=== PATIENT | female | born 1950 | race Caucasian/White ===

== ENCOUNTER 2019-12-22 12:16 | Emergency (ER) | payer OTHER, MEDICARE ==
[~2019-12-22] VITALS: Ht 172.7 cm; Wt 70.2 kg
[2019-12-22 13:28] LABS: BASOPHILS # (AUTO) 0.1 X10'3 (0-0.2); BASOPHILS % (AUTO) 1.8 % (0-1); EOSINOPHILS # (AUTO) 0.2 X10'3 (0-0.9); HEMATOCRIT 25.7 % (35.0-45.0); HEMOGLOBIN 7.6 g/dl (12.0-16.0); LYMPHOCYTES # (AUTO) 1.5 X10'3 (1.1-4.8); LYMPHOCYTES % (AUTO) 19.9 % (21-51); MEAN CORPUSCULAR HEMOGLOBIN 18.4 PG (27.0-31.0); MEAN CORPUSCULAR HGB CONC 29.5 g/dL (33.0-36.5); MEAN CORPUSCULAR VOLUME 62.3 FL (78-98); MEAN PLATELET VOLUME 7.1 FL (7.4-10.4); MONOCYTES # (AUTO) 0.7 X10'3 (0-0.9); MONOCYTES % (AUTO) 8.5 % (2-12); NEUTROPHILS # (AUTO) 5.3 X10'3 (1.8-7.7); NEUTROPHILS % (AUTO) 67.8 % (42-75); PLATELET COUNT 441 X10'3 (140-440); RED BLOOD COUNT 4.12 X10'6 (4.20-5.60); RED CELL DISTRIBUTION WIDTH 18.8 % (11.5-14.5); WHITE BLOOD COUNT 7.7 X10'3 (4.5-11.0)
[2019-12-22 13:31] LABS: ALANINE AMINOTRANSFERASE 26 U/L (12-78); ALBUMIN 3.8 G/DL (3.4-5.0); ALBUMIN/GLOBULIN RATIO 1.1 (1.1-1.5); ALKALINE PHOSPHATASE 96 IU/L (46-116); ANION GAP 1 (8-16); ASPARTATE AMINO TRANSFERASE 23 U/L (10-37); BILIRUBIN,TOTAL 0.2 MG/DL (0.1-1.0); BLOOD UREA NITROGEN 16 MG/DL (7-18); BUN/CREATININE RATIO 21.6 (6.6-38.0); CALCIUM 9.1 MG/DL (8.5-10.1); CHLORIDE 104 MMOL/L (99-107); CREATININE 0.74 MG/DL (0.40-0.90); GLUCOSE 89 MG/DL (70-104); POTASSIUM 3.8 MMOL/L (3.5-5.1); SODIUM 134 MMOL/L (135-145); TOTAL CARBON DIOXIDE 29.4 MMOL/L (24-32); TOTAL PROTEIN 7.4 G/DL (6.4-8.2); eGFR 77 ML/MIN
[2019-12-22 13:48] LABS: PLATELET ESTIMATE INCREASED; POLYCHROMASIA FEW
[2019-12-22 13:49] LABS: ANISOCYTOSIS 2+; ELLIPTOCYTES FEW; HYPOCHROMASIA 2+; MICROCYTOSIS 2+; STOMATOCYTES FEW; TEAR DROP CELLS 1+
[2019-12-22 15:43] VITALS: BP 153/74
== END 2019-12-22 16:01 | disposition home or self-care (01) ==
LOC: ER 12:17
DX: D64.9 Anemia, unspecified (principal); R07.89 Other chest pain; F17.210 Nicotine dependence, cigarettes, uncomplicated
CPT/HCPCS: 36415; 71045; 80053; 83880; 84484; 85008; 85025; 93005; 99285

== ENCOUNTER 2023-08-11 17:44 | Inpatient (IN) | payer MEDICARE, OTHER ==
[~2023-08-11] VITALS: Ht 172.7 cm; Wt 65.9 kg
[2023-08-11 18:14] LABS: ALANINE AMINOTRANSFERASE 19 U/L (12-78); ALBUMIN 3.7 G/DL (3.4-5.0); ALBUMIN/GLOBULIN RATIO 0.9 (1.1-1.5); ALKALINE PHOSPHATASE 90 IU/L (46-116); ANION GAP 5 (8-16); ASPARTATE AMINO TRANSFERASE 16 U/L (10-37); BILIRUBIN,TOTAL 0.2 MG/DL (0.1-1.0); BLOOD UREA NITROGEN 11 MG/DL (7-18); BUN/CREATININE RATIO 15.7 (10.0-20.0); CALCIUM 10.6 MG/DL (8.5-10.1); CHLORIDE 101 MMOL/L (99-107); GLUCOSE 107 MG/DL (70-104); POTASSIUM 4.3 MMOL/L (3.5-5.1); SODIUM 135 MMOL/L (135-145); TOTAL CARBON DIOXIDE 28.8 MMOL/L (24-32); TOTAL PROTEIN 7.7 G/DL (6.4-8.2); eCRCL 70 ML/MIN; eGFR 82 ML/MIN
[2023-08-11 18:15] LABS: APTT 22 SECONDS (22-32); PROTHROMBIN TIME 10.3 SECONDS (9.0-12.0)
[2023-08-11 18:21] LABS: PRO BRAIN NATRIURETIC PEPTIDE 123 PG/ML (0-450)
[2023-08-11 18:29] LABS: BASOPHILS # (AUTO) 0.1 X10'3 (0-0.2); BASOPHILS % (AUTO) 1.9 % (0-1); EOSINOPHILS # (AUTO) 0.1 X10'3 (0-0.9); HEMATOCRIT 27.4 % (35.0-45.0); HEMOGLOBIN 8.3 g/dl (12.0-16.0); LYMPHOCYTES # (AUTO) 2.4 X10'3 (1.1-4.8); LYMPHOCYTES % (AUTO) 31.5 % (21-51); MEAN CORPUSCULAR HGB CONC 30.2 g/dL (33.0-36.5); MONOCYTES # (AUTO) 0.6 X10'3 (0-0.9); MONOCYTES % (AUTO) 7.4 % (2-12); NEUTROPHILS # (AUTO) 4.5 X10'3 (1.8-7.7); NEUTROPHILS % (AUTO) 58.2 % (42-75); PLATELET COUNT 449 X10'3 (140-440); RED BLOOD COUNT 4.35 X10'6 (4.20-5.60); RED CELL DISTRIBUTION WIDTH 19.1 % (11.5-14.5); WHITE BLOOD COUNT 7.7 X10'3 (4.5-11.0)
[2023-08-11] MEDS ORDERED: iohexol 350MG/ML 100ml bottle IV ONE (19:08)
[2023-08-11] MEDS ORDERED: iohexol 350 MG/ML 50ML vial IV ONE (19:29)
[2023-08-11 19:38] LABS: ANISOCYTOSIS 2+; MICROCYTOSIS 2+; PLATELET ESTIMATE INCREASED; TOTAL CELLS COUNTED 100
[2023-08-11 19:43] LABS: ELLIPTOCYTES FEW; HYPOCHROMASIA 1+; POIKILOCYTOSIS FEW; SCHISTOCYTES FEW
[2023-08-11] MEDS ORDERED: mag hydrox/Alum hydrox/simeth 30ml oral suspension PO PRN (22:05)
[2023-08-11] MEDS ORDERED: magnesium 2GM in 50ml NS 50 ML IV PRN (22:05)
[2023-08-11] MEDS ORDERED: magnesium 4gm in 100ml NS 100 ML IV PRN (22:05)
[2023-08-11] MEDS ORDERED: magnesium Cl slow-release 64mg tablet PO PRN (22:05)
[2023-08-11] MEDS ORDERED: magnesium hydroxide 30ml (MOM) UD suspension PO PRN (22:05)
[2023-08-11] MEDS ORDERED: ondansetron/PF 4mg/2ml inj IV PRN (22:05)
[2023-08-11] MEDS ORDERED: potassium Cl 20 mEq SR tablet PO PRN ×2 (22:05)
[2023-08-11] MEDS ORDERED: potassium Cl 40MEQ/1/2NS 520ml 520 ML IV PRN (22:05)
[2023-08-11] MEDS ORDERED: acetaminophen 325mg tablet PO PRN (22:05)
[2023-08-11 22:39] LABS: HEMOGLOBIN A1C 5.7 % (4.5-6.2)
[2023-08-11] MEDS: normal saline 1000ml 1,000 ML IV SCH (23:48)
[2023-08-12 01:03] LABS: BILIRUBIN,URINE NEGATIVE (Neg); CLARITY,URINE CLEAR (Clear); COLOR,URINE STRAW (Yellow); GLUCOSE, URINE NEGATIVE (Neg); KETONES,URINE NEGATIVE (Neg); LEUKOCYTE ESTERASE ,URINE NEGATIVE (Neg); NITRITES, URINE NEGATIVE (Neg); OCCULT BLOOD,URINE SMALL (Neg); PH,URINE 5.5 (4.8-8.0); PROTEIN,URINE NEGATIVE (Neg); UROBILINOGEN,URINE 0.2 E.U/dL (0.2-1.0)
[2023-08-12 01:08] LABS: UA COLLECTION TYPE VOIDED
[2023-08-12 01:09] LABS: BACTERIA,URINE FEW /HPF (Neg); SQUAMOUS EPITHELIAL CELL,UR FEW /LPF (FEW); WBC,URINE 0-4 /HPF (0-4)
[2023-08-12] MEDS ORDERED: DEXT20TA6 PO (05:46)
[2023-08-12] MEDS ORDERED: ERGO500093 PO (05:46)
[2023-08-12] MEDS ORDERED: enoxaparin 40mg/0.4ml syringe SUBCUT SCH (08:00)
[2023-08-12] MEDS: K and/or MAG REPLACEMENT MC SCH (08:00)
[2023-08-12 09:08] VITALS: BP 135/73; PULSE 68; RESP 17; TEMP 97.5; O2SAT 96
[2023-08-12] MEDS: magnesium 2GM in 50ml NS 50 ML IV ONE (10:30)
[2023-08-12] MEDS: normal saline 500ml IV soln 500 ML IV ONE (10:31)
[2023-08-12 12:17] LABS: BASOPHILS # (AUTO) 0.1 X10'3 (0-0.2); BASOPHILS % (AUTO) 1.5 % (0-1); EOSINOPHILS # (AUTO) 0.1 X10'3 (0-0.9); EOSINOPHILS % (AUTO) 1.3 % (0-6); HEMATOCRIT 25.5 % (35.0-45.0); HEMOGLOBIN 7.6 g/dl (12.0-16.0); LYMPHOCYTES # (AUTO) 1.6 X10'3 (1.1-4.8); LYMPHOCYTES % (AUTO) 31.2 % (21-51); MEAN CORPUSCULAR HGB CONC 29.6 g/dL (33.0-36.5); MEAN PLATELET VOLUME 7.1 FL (7.4-10.4); MONOCYTES # (AUTO) 0.4 X10'3 (0-0.9); MONOCYTES % (AUTO) 8.3 % (2-12); NEUTROPHILS % (AUTO) 57.7 % (42-75); PLATELET COUNT 355 X10'3 (140-440); RED BLOOD COUNT 3.98 X10'6 (4.20-5.60); RED CELL DISTRIBUTION WIDTH 19.5 % (11.5-14.5); WHITE BLOOD COUNT 5.1 X10'3 (4.5-11.0)
[2023-08-12 12:30] LABS: ANION GAP 5 (8-16); BLOOD UREA NITROGEN 8 MG/DL (7-18); BUN/CREATININE RATIO 15.7 (10.0-20.0); CALCIUM 9.3 MG/DL (8.5-10.1); CHLORIDE 107 MMOL/L (99-107); CHOL/HDL RATIO 4.5 (0.00-4.99); CHOLESTEROL 187 MG/DL (0-200); CREATININE 0.51 MG/DL (0.40-0.90); GLUCOSE 95 MG/DL (70-104); HDL CHOLESTEROL 42 MG/DL (35-60); LDL CHOLESTEROL 118 MG/DL (50-100); POTASSIUM 4.1 MMOL/L (3.5-5.1); SODIUM 140 MMOL/L (135-145); TRIGLYCERIDES 116 MG/DL (20-135); eCRCL 96 ML/MIN; eGFR > 90 ML/MIN
[2023-08-12 13:14] LABS: FERRITIN 3 NG/ML (8-252)
[2023-08-12 13:51] VITALS: BP 142/73; PULSE 72; RESP 16; TEMP 97.8; O2SAT 98
[2023-08-12 14:10] LABS: % IRON SATURATION 2 % (11-46); IRON 9 UG/DL (49-151); TOTAL IRON BINDING CAPACITY 383 UG/DL (259-388)
[2023-08-12] MEDS: valproate sod inj 500 MG in dextrose 5%-water 50ml 50 ML IV ONE (14:57)
[2023-08-12 18:00] VITALS: BP 137/69; PULSE 96; RESP 18; TEMP 97.5; O2SAT 98
[2023-08-12] MEDS: ondansetron/PF 4mg/2ml inj IV ONE (19:32)
[2023-08-12] MEDS: aspirin 81mg, enteric-coated 1 TAB TABLET.DR PO ONE (19:32)
[2023-08-12] MEDS: diphenhydrAMINE 50 mg/ml inj IV ONE (19:32)
[2023-08-12] MEDS: FERROUS SULFATE 142 MG TABLET.ER (45mg elemental) PO SCH (19:32)
[2023-08-12 20:00] VITALS: RESP 16; O2SAT 95
[2023-08-12] MEDS: iron sucrose complex injection 300 MG in normal saline 250ml IV soln 250 ML IV SCH (21:52)
[2023-08-12 22:00] VITALS: BP 144/75; PULSE 75; RESP 20; TEMP 97.4; O2SAT 98
[2023-08-12] MEDS: Melatonin 3mg tablet PO SCH (22:40)
[2023-08-12] MEDS ORDERED: ibuprofen tablet 400 MG TABLET PO PRN (22:40)
[2023-08-13 02:00] VITALS: BP 145/58; PULSE 85; RESP 17; TEMP 97.6; O2SAT 97
[2023-08-13 06:00] VITALS: BP 129/64; PULSE 74; RESP 20; TEMP 97.5; O2SAT 96
[2023-08-13 07:08] LABS: BASOPHILS # (AUTO) 0.1 X10'3 (0-0.2); BASOPHILS % (AUTO) 1.6 % (0-1); EOSINOPHILS # (AUTO) 0.1 X10'3 (0-0.9); EOSINOPHILS % (AUTO) 2.1 % (0-6); HEMATOCRIT 24.3 % (35.0-45.0); HEMOGLOBIN 7.2 g/dl (12.0-16.0); LYMPHOCYTES # (AUTO) 0.9 X10'3 (1.1-4.8); LYMPHOCYTES % (AUTO) 12.3 % (21-51); MEAN CORPUSCULAR HEMOGLOBIN 18.9 PG (27.0-31.0); MEAN CORPUSCULAR HGB CONC 29.4 g/dL (33.0-36.5); MEAN CORPUSCULAR VOLUME 64.3 FL (78-98); MEAN PLATELET VOLUME 7.1 FL (7.4-10.4); MONOCYTES # (AUTO) 0.3 X10'3 (0-0.9); MONOCYTES % (AUTO) 4.6 % (2-12); NEUTROPHILS # (AUTO) 5.6 X10'3 (1.8-7.7); NEUTROPHILS % (AUTO) 79.4 % (42-75); PLATELET COUNT 355 X10'3 (140-440); RED BLOOD COUNT 3.78 X10'6 (4.20-5.60); RED CELL DISTRIBUTION WIDTH 19.1 % (11.5-14.5); WHITE BLOOD COUNT 7.1 X10'3 (4.5-11.0)
[2023-08-13 07:11] LABS: ALBUMIN 2.9 G/DL (3.4-5.0); ANION GAP 6 (8-16); BLOOD UREA NITROGEN 5 MG/DL (7-18); BUN/CREATININE RATIO 8.5 (10.0-20.0); CALCIUM 8.9 MG/DL (8.5-10.1); CHLORIDE 109 MMOL/L (99-107); CREATININE 0.59 MG/DL (0.40-0.90); GLUCOSE 92 MG/DL (70-104); POTASSIUM 3.9 MMOL/L (3.5-5.1); SODIUM 142 MMOL/L (135-145); TOTAL CARBON DIOXIDE 27.1 MMOL/L (24-32); eCRCL 83 ML/MIN; eGFR > 90 ML/MIN
[2023-08-13 08:58] LABS: PLATELET ESTIMATE NORMAL
[2023-08-13 08:59] VITALS: RESP 20; O2SAT 96
[2023-08-13 08:59] LABS: ANISOCYTOSIS 2+; HYPOCHROMASIA 2+; MICROCYTOSIS 2+; POLYCHROMASIA 1+
[2023-08-13] MEDS: atorvastatin 10mg tablet PO SCH (08:59)
[2023-08-13] MEDS: aspirin 81mg, enteric-coated 1 TAB TABLET.DR PO SCH (08:59)
[2023-08-13] MEDS: ascorbic acid 500mg tablet PO SCH (09:00)
[2023-08-13 09:02] LABS: ELLIPTOCYTES FEW; SCHISTOCYTES FEW
[2023-08-13 10:00] VITALS: BP 145/78; PULSE 87; RESP 18; TEMP 98.8; O2SAT 97
[2023-08-13] MEDS: sodium ferric gluc complex 125 MG/NS IV soln 110 ML BAG IV SCH (10:35)
[2023-08-13] MEDS ORDERED: AMLO5TAB16 PO (17:12)
[2023-08-13] MEDS ORDERED: ATOR10TA PO (17:12)
[2023-08-13] MEDS ORDERED: FERR-119 PO (17:12)
== END 2023-08-13 17:36 | disposition home or self-care (01) | DRG 125 ==
LOC: ER 17:45 → ED HOLD 22:12 → EDBEDREQ 08-12 01:07 → ORTHO 4S 08-12 09:17 → OBSVTOIN 08-12 13:59
PROVIDERS: ADMIT Internal Medicine Critical Care Medicine; ATTEND Family Medicine
DX: H35.62 Retinal hemorrhage, left eye (principal); E88.09 Other disorders of plasma-protein metabolism, not elsewhere classified; D50.9 Iron deficiency anemia, unspecified; E78.5 Hyperlipidemia, unspecified
CPT/HCPCS: 36415; 70450; 70480; 70496; 70498; 70551; 71045; 80048; 80053; 80061; 81001; 82728; 82948; 83036; 83540; 83550; 83880; 84484; 85007; 85008; 85025; 85610; 85651; 85730; 87081; 93005; 93306; 93880; 96365; 96367; 99291; G0378; J1200; J1756; J2405; J2916; J3475; J3490; J7030; J7040; J7050; J7060; Q9967